=== PATIENT | male | born 1965 | race Caucasian/White ===

== ENCOUNTER 2016-05-04 11:00 | Emergency (ER) | payer BC | END 2016-05-04 11:37 | disposition home or self-care (01) | LOC: ER 11:00 | DX: J20.8 Acute bronchitis due to other specified organisms (principal); F32.9 Major depressive disorder, single episode, unspecified; F17.210 Nicotine dependence, cigarettes, uncomplicated; Z95.1 Presence of aortocoronary bypass graft; Z90.89 Acquired absence of other organs ==